=== PATIENT | female | born 1990 | race Caucasian/White ===

== ENCOUNTER 2017-01-29 14:29 | Emergency (ER) | payer SELFPAY ==
[~2017-01-29] VITALS: Ht 162.6 cm; Wt 65.8 kg
[2017-01-29] MEDS ORDERED: OMEPRAZOLE20 MG PO (14:42)
[2017-01-29] MEDS ORDERED: LEXAPRO5 MG PO (14:42)
== END 2017-01-29 14:51 | disposition home or self-care (01) ==
LOC: ED 14:29
DX: Z00.8 Encounter for other general examination (principal)

== ENCOUNTER 2017-11-02 16:43 | Emergency (ER) | payer BC ==
[~2017-11-02] VITALS: Ht 162.6 cm; Wt 65.8 kg
[~2017-11-02 16:43] MED LIST: LEXAPRO5 MG PO; OMEPRAZOLE20 MG PO
[2017-11-02] MEDS ORDERED: ONDANSETRON ODT8 MG PO (19:07)
[2017-11-02] MEDS ORDERED: HYDROMORPHONE HC2 MG PO (19:07)
== END 2017-11-02 19:25 | disposition home or self-care (01) ==
LOC: ED 16:43
DX: S93.501A Unspecified sprain of right great toe, initial encounter (principal); W23.0XXA Caught, crushed, jammed, or pinched between moving objects, initial encounter; Z88.5 Allergy status to narcotic agent
CPT/HCPCS: 73660; 99283